=== PATIENT | female | born 1995 | race Caucasian/White ===

== ENCOUNTER 2023-12-30 19:36 | Emergency (ER) | payer OTHER ==
[~2023-12-30] VITALS: Ht 172.7 cm; Wt 129.0 kg
[2023-12-30 20:46] VITALS: TEMP 98.6; O2SAT 97
[2023-12-30] MEDS ORDERED: SULF1TAB48 MT (22:02)
[2023-12-30 22:30] VITALS: BP 133/78; PULSE 78; RESP 20
== END 2023-12-30 22:31 | disposition home or self-care (01) ==
LOC: ER 19:36
DX: N76.4 Abscess of vulva (principal)
CPT/HCPCS: 99284

== ENCOUNTER 2025-05-11 14:17 | Emergency (ER) | payer MEDICAID ==
[~2025-05-11] VITALS: Ht 172.7 cm; Wt 119.0 kg
[~2025-05-11 14:17] MED LIST: SULF1TAB48 MT
[2025-05-11 14:52] VITALS: O2SAT 97
[2025-05-11] MEDS: IBUPROFEN 600MG TABLET PO ONE (17:12)
[2025-05-11] MEDS: VISCOUS LIDOCAINE 2% 15 ML UDC MM ONE (17:12)
[2025-05-11 18:10] LABS: INFLUENZA TYPE A Presumptive Negative (Pres. Neg.)
[2025-05-11 18:11] LABS: INFLUENZA TYPE B Presumptive Negative (Pres. Neg.); RESPIRATORY SYNCYTIAL VIRUS Not Detected (Not Detectd)
[2025-05-11 18:47] VITALS: BP 142/94; PULSE 100; RESP 18; TEMP 37.7; O2SAT 96
[2025-05-11] MEDS ORDERED: AMOX-494 MT (18:48)
[2025-05-11] MEDS ORDERED: IBUP-2030 MT (18:48)
[2025-05-11] MEDS ORDERED: DEXAMETHASONE 1 MG/ML ORAL SYR PO ONE (19:00)
== END 2025-05-11 19:00 | disposition home or self-care (01) ==
LOC: ER 14:17
DX: J06.9 Acute upper respiratory infection, unspecified (principal); M79.7 Fibromyalgia; Z20.822 Contact with and (suspected) exposure to COVID-19
CPT/HCPCS: 87070; 87420; 87426; 87430; 87804; 99283